=== PATIENT | male | born 1965 | race African-American/Black ===

== ENCOUNTER 2023-06-24 21:45 | Emergency (ER) | payer MEDICARE, MEDICAID, SELFPAY ==
[2023-06-24] VITALS (8 sets, daily range): BP systolic 154; BP diastolic 86; PULSE 77; RESP 18; TEMP 36.6; O2SAT 95–100
--- NOTE | ~2023-06-24 | XR_ITS ---
Portable chest x-ray Comparison: 10/03/2015 Clinical History: Upper respiratory infection Findings: There is haziness at the left lung base. Right lung clear. Cardiomediastinal silhouette i s stable. Bones and soft tissues are unremarkable. Impression: Left basilar airspace disease. Correlate for atelectasis/edema versus pneumonia. Reviewed, dictated and finalized at [facility]. [employer] Impression: Left basilar airspace disease. Correlate for atelectasis/edema versus pneumonia .
[2023-06-24 23:58] LABS: Influenza A QL RT-PCR Negative (Negative); Influenza B QL RT-PCR Negative (Negative); RSV RNA, RT-PCR Negative (Negative); SARS-CoV-2 RNA PCR Positive (Negative)
[2023-06-25] VITALS: O2SAT 97
[2023-06-25 00:06] VITALS: BP 120/80; O2SAT 97
[2023-06-25 00:15] VITALS: O2SAT 98
--- NOTE | 2023-06-25 00:25 | ED.GENADULT ---
HPI - General Adult General Chief complaint: Upper Respiratory Infection Stated complaint: covid + , coughing makes stomach hurt Time Seen by Provider: 06/24/23 22:22 History of Present Illness HPI narrative: this is a 4-year-old male presenting to the ED after a positive COVID test. Patient has had viral syndrome symptoms for the last week. He is improving. Yesterday took a COVID test which was positive. This made him very worried and came the emergency room to make sure that everything was all right. This time the patient's symptoms have all been improving while he still has some residual cough he is doing well overall. Related Data Home Medications Medication Instructions Recorded Confirmed amlodipine 10 mg tablet mg 06/24/23 atorvastatin 80 mg tablet mg 06/24/23 clopidogrel 75 mg tablet mg 06/24/23 empagliflozin 10 mg tablet mg 06/24/23 (Jardiance) ezetimibe 10 mg tablet mg 06/24/23 insulin glargine 100 unit/mL (3 unit subcut 06/24/23 mL) subcutaneous pen (Lantus Solostar U-100 Insulin) metoprolol succinate 100 mg mg PO 06/24/23 tablet,extended release 24 hr sitagliptin phosphate 100 mg mg 06/24/23 tablet (Januvia) sodium bicarbonate 650 mg tablet mg 06/24/23 spironolactone 25 mg tablet mg 06/24/23 torsemide 20 mg tablet mg 06/24/23 Allergies Allergy/AdvReac Type Severity Reaction Status Date / Time No Known Allergies Allergy Verified 06/24/23 21:53 Exam Narrative: APPEARANCE: No apparent distress, Well appearing Head: atraumatic. EYES: EOMI, NOSE: Atraumatic NECK: Trachea midline RESPIRATORY: No increased rate of breathing, CTAB CARDIOVASCULAR: RRR, ABDOMINAL: Non-distended MUSCULOSKELETAl: No obvious deformities NEURO: Alert. Moving 4/4 extremities SKIN:: Warm, dry. Normal color PSYCHIATRIC: Normal affect Course Vital Signs Vital signs: Vital Signs Temperature 97.8 F 06/24/23 21:49 Pulse Rate 77 06/24/23 21:49 Respiratory Rate 18 06/24/23 21:49 Blood Pressure 154/86 H 06/24/23 21:49 Pulse Oximetry 100 06/24/23 21:49 Temperature 97.8 F 06/24/23 21:49 Pulse Rate 77 06/24/23 21:49 Respiratory Rate 18 06/24/23 21:49 Blood Pressure 154/86 H 06/24/23 21:49 Pulse Oximetry 100 06/24/23 23:45 Oxygen Delivery Room Air 06/24/23 23:45 Medical Decision Making [facility] Narrative Medical decision making narrative: -Course:58-year-old male presenting with 1 week of viral syndrome. He became concerned after a positive COVID test at home. On exam here he is well appearing. Stable vital signs. Patient educated on expected course of COVID.Patient will be discharged with return precautions. -DDX includes but is not limited to: Viral syndrome, COVID, flu, pneumonia -Co-morbidities complicating care: hypertension, diabetes, heart disease -Social determinants of health: on disability for [place] -Independent interpretation of studies: COVID positive, chest x-ray and normal -Shared decision making / Disposition: discharged Vital Signs Vital Signs: Vital Signs Temperature 97.8 F 06/24/23 21:49 Pulse Rate 77 06/24/23 21:49 Respiratory Rate 18 06/24/23 21:49 Blood Pressure 154/86 H 06/24/23 21:49 Pulse Oximetry 100 06/24/23 21:49 Temperature 97.8 F 06/24/23 21:49 Pulse Rate 77 06/24/23 21:49 Respiratory Rate 18 06/24/23 21:49 Blood Pressure 154/86 H 06/24/23 21:49 Pulse Oximetry 100 06/24/23 23:45 Oxygen Delivery Room Air 06/24/23 23:45 Lab Data Labs: Lab Results 06/24/23 Range/Units 23:18 Influenza A (RT-PCR) Negative (Negative) Influenza B (RT-PCR) Negative (Negative) RSV (RT-PCR) Negative (Negative) SARS-CoV-2 RNA (RT-PCR) Positive A (Negative) Discharge Plan Discharge Clinical Impression: Upper respiratory infection, COVID Patient Disposition: Home, Self-Care Condition: Stable Instructions: Antibiotic Form, COVID-19 (Coronavirus Disease 201
[2023-06-25 00:30] VITALS: O2SAT 97
[2023-06-25 00:31] VITALS: BP 132/80; PULSE 66; RESP 17; O2SAT 99
== END 2023-06-25 00:50 | disposition home or self-care (01) ==
PROVIDERS: Emergency Provider Emergency Medicine
DX: U07.1 COVID-19 (principal); J06.9 Acute upper respiratory infection, unspecified; Z79.4 Long term (current) use of insulin; Z79.84 Long term (current) use of oral hypoglycemic drugs
CPT/HCPCS: 71045; 87637; 99283

== ENCOUNTER 2023-10-13 22:26 | Emergency (ER) | payer MEDICARE, MEDICAID, SELFPAY ==
--- NOTE | ~2023-10-13 | CT_ITS ---
EXAMINATION: CT facial & cervical spine wo DATE: 10/13/2023 23:59 INDICATION: Facial trauma. Neck pain. TECHNIQUE: Computed tomography (CT) of the maxillofacial region and cervical spine was performed with out intravenous contrast. The dose-length product was 582.88 mGy-cm. Automated exposure control and i terative reconstruction technique were employed. COMPARISON: None FINDINGS: MAXILLOFACIAL CT: No acute facial fracture. There is mucosal thickening of the paranasal sinuses. There are multiple de ntal caries. There is mild right facial soft tissue swelling. CERVICAL SPINE CT: No acute fracture or traumatic malalignment. There is mild cervical spondylosis. Craniovertebral junc tion is normal. Odontoid process is normal. Lateral masses normally aligned. Lung apices are normal. IMPRESSION: 1. No acute abnormality of the facial bones or cervical spine. 2: Moderate sinus disease. Reviewed, dictated and finalized at location [facility].
--- NOTE | ~2023-10-13 | CT_ITS ---
EXAMINATION: CT BRAIN W/O DATE: 10/13/2023 23:57 INDICATION: Head injury. EtOH. TECHNIQUE: Computed tomography (CT) of the head was performed without intravenous contrast. The dose- length product was 681.00 mGy-cm. Automated exposure control and iterative reconstruction technique w ere employed. COMPARISON: No prior studies for comparison. FINDINGS: Mild generalized atrophy. There are scattered mild periventricular and subcortical white ma tter changes, most likely related to small vessel ischemic disease (microangiopathy). There is intrac ranial atherosclerosis. There is a small chronic left thalamic infarction. No ventriculomegaly or midline shift. Midline sagittal images demonstrate a normal corpus callosum, c raniovertebral junction and sella turcica. Basilar cisterns are patent. Paranasal sinuses and mastoids are pneumatized. No depressed skull fractures. IMPRESSION: 1. No acute intracranial abnormality. Reviewed, dictated and finalized at location [facility].
[2023-10-13 22:27] VITALS: BP 144/77; PULSE 83; RESP 15; TEMP 36.8; O2SAT 97
[2023-10-13] MEDS: TETANUS,DIPHTHERIA,AC PERTUSSIS ADULT (0.5 ML) BOOSTRIX IM (23:09)
--- NOTE | 2023-10-14 00:02 | ED.GENADULT ---
HPI - General Adult General Chief complaint: Fall Stated complaint: GLF, Facial Injury, ETOH Time Seen by Provider: 10/13/23 22:35 History of Present Illness HPI narrative: patient is 58-year-old gentleman who presents emergency department with chief complaint of facial injury. The patient reports he drank a 5th of [employer] and was walking fell and hit his face against the ground the patient reports he has had several teeth that have been knocked out reports no chest pain denies pain in his extremities Related Data Home Medications Medication Instructions Recorded Confirmed amlodipine 10 mg tablet mg 06/24/23 atorvastatin 80 mg tablet mg 06/24/23 clopidogrel 75 mg tablet mg 06/24/23 empagliflozin 10 mg tablet mg 06/24/23 (Jardiance) ezetimibe 10 mg tablet mg 06/24/23 insulin glargine 100 unit/mL (3 unit subcut 06/24/23 mL) subcutaneous pen (Lantus Solostar U-100 Insulin) metoprolol succinate 100 mg mg PO 06/24/23 tablet,extended release 24 hr sitagliptin phosphate 100 mg mg 06/24/23 tablet (Januvia) sodium bicarbonate 650 mg tablet mg 06/24/23 spironolactone 25 mg tablet mg 06/24/23 torsemide 20 mg tablet mg 06/24/23 Allergies Allergy/AdvReac Type Severity Reaction Status Date / Time No Known Allergies Allergy Verified 06/24/23 21:53 Review of Systems Review of Systems: A 10 system review of systems was completed on the patient and is negative except for what is stated in the HPI. Nursing and ancillary documentation was reviewed. Exam Narrative: GENERAL: Well-appearing, well-nourished, and in no acute distress. HEAD: Normocephalic, atraumatic. EYES: PERRLA and EOMI. ENT: Nares clear, no rhinorrhea or epistaxis. Mucous membranes moist. multiple loose teeth and several teeth that appear to have been knocked out. The mandible appears to be stable NECK: Supple. CHEST: Clear to auscultation. No respiratory distress. HEART: Regular rate and rhythm. No murmur heard. Normal peripheral pulses. ABDOMEN: Soft, nontender, nondistended, normal active bowel sounds. EXTREMITIES: Normal range of motion. No edema. SKIN: Warm, dry, no rash. NEURO: No focal deficits. Alert and oriented x3. PSYCH: Normal mood and affect. Course Vital Signs Vital signs: Vital Signs Temperature 36.8 C 10/13/23 22:27 Pulse Rate 83 10/13/23 22:27 Respiratory Rate 15 10/13/23 22:27 Blood Pressure 144/77 H 10/13/23 22:27 Pulse Oximetry 97 10/13/23 22:27 Oxygen Delivery Room Air 10/13/23 22:27 Temperature 36.8 C 10/13/23 22:27 Pulse Rate 67 10/14/23 02:27 Respiratory Rate 15 10/14/23 02:27 Blood Pressure 131/76 10/14/23 00:34 Pulse Oximetry 98 10/14/23 02:27 Oxygen Delivery Room Air 10/13/23 22:27 Medical Decision Making MDM Narrative Medical decision making narrative: differential diagnosis includes intracranial hemorrhage, cervical spine fracture, facial fracture, dental trauma CT head CT C-spine CT facial bones were obtained showed no evidence of fracture. No evidence of acute intracranial pathology. Patient will be discharged home follow up with his primary care provider and also should follow up with a dentist Vital Signs Vital Signs: Vital Signs Temperature 36.8 C 10/13/23 22:27 Pulse Rate 83 10/13/23 22:27 Respiratory Rate 15 10/13/23 22:27 Blood Pressure 144/77 H 10/13/23 22:27 Pulse Oximetry 97 10/13/23 22:27 Oxygen Delivery Room Air 10/13/23 22:27 Temperature 36.8 C 10/13/23 22:27 Pulse Rate 67 10/14/23 02:27 Respiratory Rate 15 10/14/23 02:27 Blood Pressure 131/76 10/14/23 00:34 Pulse Oximetry 98 10/14/23 02:27 Oxygen Delivery Room Air 10/13/23 22:27 Discharge Plan Discharge Clinical Impression: Head injury, Dental trauma, Alcohol intoxication Patient Disposition: Home, Self-Care Condition: Stable Instructions: Antibiotic Form, Head Injury (ED), Alcohol Intoxicati
[2023-10-14 00:34] VITALS: BP 131/76; PULSE 95; RESP 16; O2SAT 97
[2023-10-14 02:27] VITALS: PULSE 67; RESP 15; O2SAT 98
== END 2023-10-14 02:57 | disposition home or self-care (01) ==
PROVIDERS: Emergency Provider Emergency Medicine
DX: S09.90XA Unspecified injury of head, initial encounter (principal); S02.5XXA Fracture of tooth (traumatic), initial encounter for closed fracture; F10.129 Alcohol abuse with intoxication, unspecified; Z23 Encounter for immunization; W01.0XXA Fall on same level from slipping, tripping and stumbling without subsequent striking against object, initial encounter
CPT/HCPCS: 70450; 70486; 72125; 90471; 90715; 99284

== ENCOUNTER 2025-02-04 16:05 | Emergency (ER) | payer MEDICARE, MEDICAID, SELFPAY ==
[2025-02-04] VITALS (7 sets, daily range): BP systolic 146–157; BP diastolic 72–108; PULSE 70–87; RESP 13–23; TEMP 36.3–36.6; O2SAT 96–100
--- NOTE | ~2025-02-04 | XR_ITS ---
EXAMINATION: XR chest 1V portable COMPARISON: No comparisons available. HISTORY: Cough x7 days FINDINGS: Scattered basilar small airspace opacities No pneumothorax. Heart is normal size. Mediastinal and hilar contours are within normal limits. Bony thorax no acute abnormality. Miscellaneous: None Impression: Bilateral pneumonia Reviewed, dictated and finalized at location A. Impression: Bilateral pneumonia
--- OUTSIDE RECORDS SUMMARY | 2025-02-04 16:06 | XMS_ITS | Encounter Summary ---
Author Organization [facility] , [facility] Address [address] [place] [phone] Phone Care Team Providers Care Photogrammetrist Name Role Phone Jr Schmidt MD Primary Care Provider [phone] Reason for Visit * Reason Comments Med Refill Encounter Details Date Type Department Care Team (Late st Contact Info) Description 04/26/2022 Refill [facility], [facility] [address] [facility] [address] [place] [phone] Feng Arevalo DO [address] [facility] [address] [place] [address] Social History Tobacco Use Types Packs/Day Years Used Date Smoking Tobacco: Never Alcohol Use Standard Drinks/Week Comments Yes 0 (1 standard drink = 0.6 oz pure alcohol) Alcoholic Drinks/day: Occasional social drink Sex and Gender Information Value Date Recorded Sex Assigned at Not on file Legal Sex Male 2:52 PM EDT Gender Identity Not on file Sexual Orientation Not on file documented as of this encounter Plan of Treatment Not on file documented as of this encounter Visit Diagnoses Not on filedocumented in this encounter Care Teams Photogrammetrist Relationship Specialty Start Date End Date Jr Schmidt MD [address] [place] [address] PCP - General Family Medicine 04/15/24 documented as of this encounter
--- OUTSIDE RECORDS SUMMARY | 2025-02-04 16:06 | XMS_ITS | Clinical Summary ---
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 300 each 4 01/08/20 24 Active albuterol HFA (PROVENTIL HFA,VENTOLIN HFA,PROAIR HFA) 90 mcg/actuation inhalerIndicati ons:Simple chronic bronchitis (HCC) Inhale 2 puffs every 6 (six) hours as needed for wheezing 3 each 4 01/08/20 24 Active sodium bicarbonate 650 mg tablet Take 1 tablet by mouth twice daily 200 tablet 1 07/23/19 25 Active LANTUS 100 unit/mL (3 mL) pen for injectionIndica tions:Hyperlipi demia associated with type 2 diabetes mellitus (HCC) INJECT 10 UNITS SUBCUTANEOUSLY NIGHTLY 15 mL 08/19/19 25 Active amLODIPine (NORVASC) 10 mg tabletIndicatio ns:Hypertensive kidney disease, stage III (HCC) Take 1 tablet (10 mg total) by mouth daily 90 tablet 3 11/11/19 25 026 Active atorvastatin (LIPITOR) 80 mg tabletIndicatio ns:Hyperlipidem ia associated with type 2 diabetes mellitus (HCC) Take 1 tablet (80 mg total) by mouth nightly 90 tablet 11/11/19 25 Active budesonide-glyc opyr-formoterol (BREZTRI) 160-9-4.8 mcg/actuation inhalerIndicati ons:Bronchospas m Prevention with COPD Inhale 2 puffs 2 (two) times a day 10.7 g 11/11/19 25 Active clopidogreL (PLAVIX) 75 mg tabletIndicatio ns:Atherosclero sis of [place] coronary artery of [place] heart without angina pectoris Take 1 tablet (75 mg total) by mouth daily 90 tablet 3 11/11/19 25 Active evolocumab (Repatha SureClick) 140 mg/mL pen injectorIndicat ions:Hyperlipid emia associated with type 2 diabetes mellitus (HCC) Inject 1 mL (140 mg total) under the skin every 14 (fourteen) days 2 mL 11/11/19 25 Active ezetimibe (ZETIA) 10 mg tabletIndicatio ns:Hyperlipidem ia associated with type 2 diabetes mellitus (HCC) Take 1 tablet (10 mg total) by mouth daily 90 tablet 3 11/11/19 25 Active Januvia 100 mg tabletIndicatio ns:Hyperlipidem ia associated with type 2 diabetes mellitus (HCC) Take 1 tablet (100 mg total) by mouth daily 90 tablet 11/11/19 25 Active empagliflozin (Jardiance) 10 mg tabletIndicatio ns:Hyperlipidem ia associated with type 2 diabetes mellitus (HCC) Take 1 tablet (10 mg total) by mouth daily 90 tablet 11/11/19 25 026 Active lisinopriL (PRINIVIL,ZESTR IL) 40 mg tabletIndicatio ns:Hypertensive kidney disease, stage III (HCC) Take 1 tablet (40 mg total) by mouth nightly 90 tablet 3 11/11/19 25 026 Active metoprolol XL (TOPROL-XL) 100 mg 24 hr tabletIndicatio ns:Hypertensive kidney disease, stage III (HCC) Take 1 tablet (100 mg total) by mouth nightly 90 tablet 11/11/19 25 Active pregabalin (LYRICA) 75 mg capsule Take 1 capsule (75 mg total) by mouth 2 (two) times a day 60 capsule 2 11/11/19 25 Active spironolactone (ALDACTONE) 25 mg tabletIndicatio ns:Hypertension associated with diabetes (HCC) Take 1 tablet (25 mg total) by mouth daily 90 tablet 3 11/11/19 25 026 Active Active Problems Problem Noted Date Diagnosed Date Stage 3b chronic kidney disease 10/01/2023 Encounter for Medicare annual wellness exam 09/12 Assessment & Plan (10/01/2023 3:48 PM CDT): A(n) yearly Medicare Annual Wellness Visit has been performed today. Renard Rivera is not up to date on screening tests. He is in need of Diabetic eye exam, Diabetic foot exam, hepatitis B, and Cholesterol screening. He is not up to date on needed preventative vaccinations; He is in need of Pneumonia (Prevnar-13 or Pneumovax- 23). We discussed healthy lifestyle habits, educational material has been given. Medications reviewed, changes documented as per the medical record and discussed with patient along with risks vs benefits. Return in 3 months Other thrombophilia 10/01/2023 Swelling of lower extremity 09/14/2023 Abnormal cardiovascular stress test 01/12/2023 Ventricular premature depolarization 11/10/2022 Patient noncompliant with statin medication 09/12 PAD (peripheral artery disease) 10/07/2022 Assessment & Plan (10/07/2022 12:45 PM CDT): Advised to resume aspirin Refilled Plavix At risk for diabetic foot ulcer 10/07/2022 Noncompliance with diabetes treatment 10/03/2022 Assessment & Plan (10/07/2022 12:58 PM CDT): As he has been off of his medications for around a month (he didn't call for refills of anything), I am concerned about his risk, and I expressed that to him bluntly in visit. Family history of other specified conditions 02/ Family history of stroke 06/29/2022 Shortness of breath 06/29/2022 Alcohol abuse 04/01/2022 Hypertension associated with diabetes 04/01/2022 Assessment & Plan (11/20/2022 4:27 PM CDT): Adding spironolactone Continuing current regimen otherwise, except discontinuing torsemide BMP ordered for 1-2 weeks to check potassium and renal function after starting spironolactone Assessment & Plan (07/08/2022 12:16 PM PORCELAIN ENAMEL REPAIRER): Awaiting labs EKG today shows old heart attack changes; possible new signs of ischemia. I will want to get a stress test regardless BP is controlled Continuing current regimen (will double check on the atorvastatin) Hyperlipidemia associated with type 2 diabetes richard bazan 02/03/2021 Assessment & Plan (10/07/2022 12:48 PM CDT): Resuming Jardiance, Adry Will try to resume Repatha, advised him to check with website to get information on savings, and let us know Refilled atorvastatin, Zetia Awaiting a1c, microalbumin, lipid panel Assessment & Plan (04/01/2022 2:18 PM PORCELAIN ENAMEL REPAIRER): A1c is still well below 7%, but increased a bit Will continue current regimen for now, recheck at follow up Calcium is elevated, checking in 2 weeks if parathyroid dysfunction present. Labs are ordered for Sunday, 04/10 here Cholesterol is improved Kidney function is mildly decreased, need more hydration with water (6-8 8-oz glasses a day), cut back on salt intake BP is improved nicely Wound is healed Assessment & Plan (02/03/2021 1:17 PM CDT): Pt on max dose of Atorvastatin and Zetia Has indication for PCSK9 inhibitor Will check fasting lipid profile Will request rx for Repatha. 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 Blood glucose monitoring : 1-2 x week Adjustment to oral medications: Continue with Jarkatianawolfgang and Wolfrubenvianey Carotid bruit 12/08/2016 Stenosis of carotid artery 06/09/2016 Obesity 06/09/2016 Obstructive sleep apnea syndrome 06/09/2016 Leg pain, bilateral 02/09/2016 Angina pectoris 01/07/2016 Chronic kidney disease, unspecified 12/03/2015 Chronic obstructive pulmonary disease 10/31/2015 Ischemic cardiomyopathy 10/31/2015 Diabetic nephropathy associa mandy with type 1 diabetes mellitus 10/20/2015 Hypertensive kidney disease, stage III 6 Assessment & Plan (10/07/2022 12:45 PM CDT): Start amlodipine 1/2 tab for 5 days, then to full tablet Advised to watch BP, then if not below 110/70, start metoprolol after 1 week on amlodipine; if BP is not improving with amlodipine, start metoprolol sooner Awaiting labs We will check on him early next week Atherosclerotic heart diseas e of [place] coronary artery without angina pectoris 10/04/2015 Assessment & Plan (10/07/2022 12:49 PM CDT): Unclear if he is still seeing a program management manager Working on resuming his medications, then we will get him back to specialist Resolved Problems Problem Noted Date Diagnosed Date Resolved Date Skin ulcer of right lower le g, limited to breakdown of skin 10/01/2023 01/08/2024 Encounters Date Type Department Care Team Description 11/11/2024 Results Follow-Up [facility] Primary Care at [address] [address] Jr Schmidt MD Hemoglobin A1c, Thyroid Function [place], T4, free 11/10/2024 4:02 PM CDT - 11/10/2024 11:59 PM CDT Hospital Encounter [address] [address] Hyperlipidemia associated with type 2 diabetes mellitus (HCC); Hypertensive kidney disease, stage III (HCC) Discharge Disposition: Discharge to home or self care 11/10/2024 4:00 PM CDT Lab [facility] Medical [facility] Outpatient Lab at [address] [address] 11/10/2024 3:15 PM CDT Office Visit [facility] Primary Care at [address] [address] Jr Schmidt MD 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 (HCC) (Primary Dx); Hypertensive kidney disease, stage III (HCC); Persistent atrial fibrillation (HCC); Hyperlipidemia associated with type 2 diabetes mellitus (HCC); Simple chronic bronchitis (HCC); Atherosclerosis of [place] coronary artery of [place] heart without angina pectoris; Hypertension associated with diabetes (HCC); At risk for diabetic foot ulcer; Screening for diabetic retinopathy from Last 3 Months Immunizations Immunization Administration Dates Next Due Influenza, Quadrivalent, Spl it, Preservative Free, Intramuscular 03/30/2022 Influenza, Trivalent, Preser vative Free, Intramuscular 04/07/2024 Influenza, Unspecified 05/14/2023(Deferr ed: Patient Refused),05/14/2023(Deferred: Patient Refused),05/14/2022(Deferred: Patient Refused) Pneumococcal Conjugate Pcv20 10/01/2023 Tdap 10/13/2023 Surgical History Surgery Date Site/Laterality Comments CARDIAC STENT PLACEMENT September 2014, presented with ID CORONARY ANGIOPLASTY WITH STENT PLACEMENT 05/14/2023 - 05/13/2024 Medical History Medical History Date Comments Type 2 diabetes mellitus Hyperlipidemia Hypertension Kidney disease CAD (coronary artery disease) Patient noncompliant with statin medication 10/07 Family History Medical History Relation Name Comments Hypertension Father Hypertension Mother Stroke Mother Stroke; Diabetes Sister Relation Name Status Comments Father Mother (Age 74) Sister Social History Tobacco Use Types Packs/Day Years Used Date Smoking Tobacco: Never Smokeless Tobacco: Never Tobacco Cessation:Counseling Given: Not Answered Alcohol Use Standard Drinks/Week Comments Yes 0 (1 standard drink = 0.6 oz pur e alcohol) AUDIT-C Answer Date Recorded Q1: How often do you have a drink containing alcohol? 4 or more times a week 03/30/2022 Q2: How many drinks containi ng alcohol do you have on a typical day when you are drinking? 3 or 4 Q3: How often do you have si x or more drinks on one occasion? Daily or almost daily 03/30/2022 PHQ-2 Answer Date Recorded PHQ-2 Total Score (If total score is 3 or more points, staff should administer the PHQ-9) 0 11/10/2024 Sex and Gender Information Value Date Recorded Sex Assigned at Not on file Legal Sex Male 3:51 AM PORCELAIN ENAMEL REPAIRER Gender Identity Not on file Sexual Orientation Not on file Obstetrics History Last Filed Vital Signs Vital Sign Reading Time Taken Comments Blood Pressure 146/80 11/10/2024 3:14 PM CDT Pulse 74 11/10/2024 3:14 PM CDT Temperature 36 C (96.8 F) 11/10/2024 3:14 PM CDT Respiratory Rate 18 11/10/2024 3:14 PM CDT Oxygen Saturation 96% 11/10/2024 3:14 PM CDT Inhaled Oxygen Concentration - - Weight 103.9 kg (229 lb) 11/10/2024 3:14 PM CDT Height 185.4 cm (6' 1) 11/10/2024 3:14 PM CDT Body Mass Index 30.21 11/10/2024 3:14 PM CDT Plan of Treatment Health Maintenance Due Date Last Done Comments Colon Cancer Screening-Colonoscopy 1965 Dilated Eye Exam 1973 Covid-19 Vaccine ( season) 2025 08/29/2020, 08/08/2020 Influenza Vaccine (#1) 2025 04/07/2024, 2021 Hemoglobin A1C 05/12/2025 11/10/2024, 03/0 08/2024, 04/07/2024, Additional history exists Albumin Creatinine Ratio, Urine 07/15/2025 07/15/2024, 10/01/2023, 10/06/2022, Additional history exists Foot Exam 07/15/2025 07/15/2024, 06/14, 02/03/2021 Lipid Panel 07/15/2025 07/15/2024, 03/15, 10/01/2023, Additional history exists eGFR 07/15/2025 07/15/2024, 03/15, 10/01/2023, Additional history exists Depression Screening 11/10/2025 11/10/2024, 07/15/2024, 04/07/2024, Additional history exists Regular Well Visit/Exam 18-64 11/10/2025 11/10/2024, 10/01/2023 TSH Level 11/10/2025 11/10/2024, 09/12, 10/06/2022, Additional history exists Zoster Vaccine (1 of 2) 11/10/2025 Post poned from 2013 (Insurance / Financial) Prostate Cancer Screening-PSA 07/15/2026 07/15/2024, 09/05/2022 DTaP/Tdap/Td Vaccine (2 - Td or Tdap) 10/12/2033 10/13/2023 Hepatitis C Screening Completed 09/05/2022 Hepatitis B Screening Completed 10/01/2023 Pneumococcal vaccine <65 Completed 10/01/2023 Procedures Procedure Name Priority Date/Time Associated Diagnosis Comments T4, FREE Routine 11/10/2024 4:02 PM CDT Hypertensive kidney disease, stage III (HCC) THYROID FUNCTION CASCADE Routine 11/10/2024 4:02 PM CDT Hypertensive kidney disease, stage III (HCC) HEMOGLOBIN A1C Routine 11/10/2024 4:02 PM CDT Hyperlipidemia associated with type 2 diabetes mellitus (HCC) EGFR Routine 07/15/2024 11:17 AM PORCELAIN ENAMEL REPAIRER Hypertensive kidney disease, stage III (HCC) Stage 3b chronic kidney disease (HCC) LIPID PANEL Routine 07/15/2024 11:17 AM PORCELAIN ENAMEL REPAIRER Hyperlipidemia associated with type 2 diabetes mellitus (HCC) ALBUMIN CREATININE RATIO, URINE Routine 07/15/2024 11:17 AM PORCELAIN ENAMEL REPAIRER Hypertensive kidney disease, stage III (HCC) 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 (HCC) PSA SCREEN Routine 07/15/2024 11:17 AM PORCELAIN ENAMEL REPAIRER Screening PSA (prostate specific antigen) HEPATITIS C ANTIBODY Routine 09/05/2022 9:25 AM CDT Encounter for hepatitis C screening test for low risk patient from Last 3 Months or Most Recently Relevant to Health Maintenance Results * (ABNORMAL) Thyroid Function [place] (11/10/2024 4:02 PM CDT) TSH 5.84(H) 0.30 - 4.20 mcIUnit/mL Blood 11/10/2024 4:02 PM CDT 11/10/2024 9:31 PM CDT Jr Schmidt MD LAB BLOOD ORDERABLES Final Result Performing Organization Address City/[facility] Co de Phone Number KENNETH LARKIN [address] [email or web address] [place], [place] [id number] * T4, free (11/10/2024 4:02 PM CDT) Free T4 1.06 0.90 - 1.70 ng/dL Blood 11/10/2024 4:02 PM CDT 11/10/2024 9:54 PM CDT Jr Schmidt MD LAB BLOOD ORDERABLES Final Result Performing Organization Address City/[facility] Co de Phone Number KENNETH LARKIN [address] [address] [email or web address] [place] [address] * (ABNORMAL) Hemoglobin A1c (11/10/2024 4:02 PM CDT) Hgb A1C 6.9(H) 4.0 - 5.6 % Estimated Average Glucose 151 mg/dL KENNETH LARKIN Comment: The ADA recommends reporting an estimated Average Glucose (eAG) with all Hemoglobin A1c results using the equation derived from a study of 507 normal and diabetic adults. Minority populations were underrepresented and children were not included. (Diabetes Care 31:6211-9791, 2008). The eAG is not equivalent to a fasting glucose. Blood 11/10/2024 4:0 2 PM CDT 11/10/2024 9:31 PM CDT Jr Schmidt MD LAB BLOOD ORDERABLES Final Result Performing Organization Address [facility] Co de Phone Number KENNETH LARKIN [address] Department [email or web address] [place] [address] * (ABNORMAL) eGFR (07/15/2024 11:17 AM PORCELAIN ENAMEL REPAIRER) eGFR 52(L) >=60 mL/min/1. 73 m2 Comment: Interpretive Data Reference Interval Normal >/= 90 mL/min/1.73m2 Mildly decreased* 60 - 89 mL/min/1.73m2 Mildly to moderately decreased 45 - 59 mL/min/1.73m2 Moderately to severely decreased 30 - 44 mL/min/1.73m2 Severely decreased 15 - 29 mL/min/1.73m2 Kidney Failure < 15 mL/min/1.73m2 *Relative to young adult level Estimated glomerular filtration rate is determined by the 2020 CKD-EPI equation recommended by the National Kidney Foundation (A Unifying Approach to GFR Estimation: Recommendations of the NKF-ASK Task Force on Reassessing the Inclusion of Race in Diagnosing Kidney Disease, JASN 2020). The CKD-EPI equation should not be used for patients with unstable renal function and has not been validated in children and those over 70. Current interpretive data was last reviewed 2021. Blood 07/15/2024 11:1 7 AM PORCELAIN ENAMEL REPAIRER 07/15/2024 10:11 PM PORCELAIN ENAMEL REPAIRER Jr Schmidt MD LAB BLOOD ORDERABLES Final Result Performing Organization Address City/[facility]/ZIP Co de Phone Number KENNETH LARKIN [phone] [address] [email or web address] [place] [address] * PSA screen (07/15/2024 11:17 AM PORCELAIN ENAMEL REPAIRER) PSA-Total 1.49 <=5.40 ng/mL Comment: Interpretive Data AGE SEX REFERENCE INTERVAL 0 minutes-150 years Female None 0 minutes-49 years Male None 50-59 years Male 0-3.90 60-69 years Male 0-5.40 70-79 years Male 0-6.20 80-150 years Male 0-6.20 The Nestor PSA Total assay procedure was used. Results from different manufacturers or methods may not be comparable. Serial testing should be performed using the same method. Current interpretive data last revised 21. Blood 07/15/2024 11:1 7 AM PORCELAIN ENAMEL REPAIRER 07/15/2024 10:07 PM PORCELAIN ENAMEL REPAIRER Jr Schmidt MD LAB BLOOD ORDERABLES Final Result Performing Organization Address [facility] de Phone Number [facility] [address] [address] [email or web address] [place] [address] * (ABNORMAL) Albumin Creatinine Ratio, Urine (07/15/2024 11:17 AM PORCELAIN ENAMEL REPAIRER) Albumin Ur 118.3 mg/L Comment: Interpretive Data No reference range established. Current interpretive data was last revised 2018. Creatinine Ur 92.0 mg/dL [facility] Comment: Interpretive Data No reference range established. Current interpretive data was last revised 2018. Albumin Creatinine Ratio, Ur 129(H) 1 - 29 mg/g [facility] Urine 07/15/2024 11:1 7 AM PORCELAIN ENAMEL REPAIRER 07/15/2024 10:07 PM PORCELAIN ENAMEL REPAIRER Jr Schmidt MD LAB URINE ORDERABLES Final Result Performing Organization Address [facility] Phone Number [facility] [address] [address] [facility] [place] [address] * Lipid panel (07/15/2024 11:17 AM PORCELAIN ENAMEL REPAIRER) Cholesterol 185 30 - 199 mg/dL Comment: Interpretive Data Ages < or = 19 years Acceptable: <170 mg/dL Borderline high: 170-199 mg/dL High: >or= 200 mg/dL Ages > or = 20 years Desirable: <200 mg/dL Borderline high: 200-239 mg/dL High: >or= 240 mg/dL Literature References: 1. Expert Panel on Integrated Guidelines for Cardiovascular Health and Risk Reduction in Children and Adolescents. Pediatrics 2011;128:S213 2. NCEP Expert Panel. Circulation 2004;110:227 Current Interpretive Data was last revised on 2018. Triglycerides 112 <=149 mg/dL KENNETH Comment: Interpretive Data Ages < or = 9 years Acceptable: <75 mg/dL Borderline high: 75-99 mg/dL High: >or= 100 mg/dL Ages 10 to 20 years Acceptable: <90 mg/dL Borderline high: 90-129 mg/dL High: >or= 130 mg/dL Ages > or = 20 years Desirable: <150 mg/dL Borderline high: 150-199 mg/dL High: 200-499 mg/dL Very high: >or= 499 mg/dL Literature References: 1. Expert Panel on Integrated Guidelines for Cardiovascular Health and Risk Reduction in Children and Adolescents. Pediatrics 2011;128:S213 2. NCEP Expert Panel. Circulation 2004;110:227 Current Interpretive Data was last revised on 2018. HDL 61 >=40 mg/dL KNENETH Comment: Interpretive Data Ages < or = 19 years Acceptable: >45 mg/dL Borderline low: 40-45 mg/dL Low: <40 mg/dL Ages > or = 20 years Desirable: >or= 60 mg/dL Low: <40 mg/dL Literature References: 1. Expert Panel on Integrated Guidelines for Cardiovascular Health and Risk Reduction in Children and Adolescents. Pediatrics 2011;128:S213 2. NCEP Expert Panel. Circulation 2004;110:227 Current Interpretive Data was last revised on 2018. LDL, calculated 104 <=129 mg/dL KENNETH Comment: Interpretive Data Ages < or = 19 years Acceptable: <110 mg/dL Borderline high: 110-129 mg/dL High: >or= 130 mg/dL Ages > or = 20 years Optimal: <100 mg/dL Near optimal: 100-129 mg/dL Borderline high: 130-159 mg/dL High: >160 mg/dL Calculated using the Wu LDL-C estimating equation. This equation was implemented on 2024. Prior to this date LDL-C was estimated using the Friedewald equation. Literature References: 1. Expert Panel on Integrated Guidelines for Cardiovascular Health and Risk Reduction in Children and Adolescents. Pediatrics 2011;128:S213 2. NCEP Expert Panel. Circulation 2004;110:227 3. Bryce M et al. GONZALEZ Cardiol. 2019September 11;5(5):540-548. doi: 10.1001/[email or web address] Current Interpretive Data was last revised on 2024. Non-HDL Cholesterol 124 mg/dL KENNETH LARKIN Comment: Interpretive Data Ages < or = 19 years Acceptable: <120 mg/dL Borderline high: 120-144 mg/dL High: >145 mg/dL Ages > or = 20 years When triglycerides are >200 mg/dL, Non-HDL cholesterol is a secondary target of therapy with treatment goals that are 30 mg/dL greater than the LDL cholesterol target. Literature References: 1. Expert Panel on Integrated Guidelines for Cardiovascular Health and Risk Reduction in Children and Adolescents. Pediatrics 2011;128:S213 2. NCEP Expert Panel. Circulation 2004;110:227 Current Interpretive Data was last revised on 2018. Chol/HDL ratio 3 KENNETH Blood 07/15/2024 11:1 7 AM PORCELAIN ENAMEL REPAIRER 07/15/2024 10:07 PM PORCELAIN ENAMEL REPAIRER Jr Schmidt MD LAB BLOOD ORDERABLES Final Result KENNETH [address] [place] [address] * Hepatitis C antibody (09/05/2022 9:25 AM CDT) Pathologist [facility] Hep C Ab Nonreactive Nonreactive KENNETH LARKIN Comment: Interpretive Data Nonreactive: Antibodies to HCV not detected. Does NOT exclude the possibility of recent exposure to HCV. Equivocal: Equivocal for HCV antibodies. Supplemental molecular testing will be automatically performed to determine infection status in accordance with current CDC screening recommendations. Reactive: Positive for HCV antibodies. This may represent current or past HCV infection. Supplemental molecular testing will be automatically performed to determine current infection status in accordance with current CDC screening recommendations. Interpretive data was last revised on 2019. Blood 09/05/2022 9:25 AM CDT 09/05/2022 3:25 PM CDT Jr Schmidt MD LAB MICROBIOLOGY - GENERAL ORDERABLES Final Result Performing Organization Address City/State/ZIP [facility] Phone Number KENNETH [address] [facility] [place] [address] from Last 3 Months or Most Recently Relevant to Health Maintenance Insurance [facility] [employer] Care Teams Front Sight Attacher Relationship Specialty Start Date End Date Jr Schmidt MD [address] [facility] [address] [place] [address] PCP - General Family Medicine 03/02/22 Feng Arevalo DO [address] [facility] [address] [place] [address] Consulting Physician Nephrology 06/29/22 Werner Estevez MD [address] [place] [address] Consulting Physician Cardiology 10/01/23
--- OUTSIDE RECORDS SUMMARY | 2025-02-04 16:06 | XMS_ITS | Encounter Summary ---
Author Organization [facility] , [facility] Address [address] [place] [phone] Phone Care Team Providers Care Central Processing Tech Name Role Phone Jr Schmidt MD Primary Care Provider [phone] Reason for Visit * Reason Comments Med Refill Encounter Details Date Type Department Care Team (Late st Contact Info) Description 02/26/2022 Refill [place] [facility], [facility] 1265 [facility] 1 [place] [phone] Feng Arevalo DO 1265 [facility] 1 [place] [address] Social History Tobacco Use Types [...] on filedocumented in this encounter Care Teams Central Processing Tech Relationship Specialty Start Date End Date Jr Schmidt MD [address], [id number] [place] [address] PCP - General Family Medicine 04/15/24 documented as of this encounter
--- OUTSIDE RECORDS SUMMARY | 2025-02-04 16:06 | XMS_ITS | Encounter Summary ---
Author Organization [facility] , [facility] Address [address] [place] [phone] Phone Care Team Providers Care Merchant Mill Utility Worker Name Role Phone Jr Schmidt MD Primary Care Provider Reason for Visit * Reason Comments Med Refill Encounter Details Date Type Department Care Team (Late st Contact Info) Description 04/22/2022 Refill [place] [facility], [facility] 1265 [facility] 1 [place] [phone] Feng Arevalo DO 1265 [facility] 1 [place] [address] Social History Tobacco Use Types [...] on filedocumented in this encounter Care Teams Merchant Mill Utility Worker Relationship Specialty Start Date End Date Jr Schmidt MD [address], [id number] [place] [address] PCP - General Family Medicine 04/15/24 documented as of this encounter
--- OUTSIDE RECORDS SUMMARY | 2025-02-04 16:06 | XMS_ITS | Clinical Summary ---
Author Organization [facility] Address [address] [place] [address] Phone Care Team Providers Care Farm Adviser Name Role Phone Unavailable Primary Care Provider Unavailabl e Medications hydrALAZINE (APRESOLINE) 10 MG tablet 1 tab/cap tid 0 6 Active atorvastatin (LIPITOR) 40 MG tablet 1 tab/cap qday 0 6 Active nitroglycerin (NITROSTAT) 0.4 MG SL tablet as directed 0 6 Active isosorbide dinitrate (ISORDIL) 5 MG tablet 1 tab/cap tid 0 6 Active clopidogrel (PLAVIX) 75 MG tablet 1 tab/cap qday 0 6 Active insulin aspart (NOVOLOG) 100 UNIT/ML injection as directed 0 6 Active aspirin 325 MG EC tablet 1 tab/cap qday 0 6 Active insulin glargine (LANTUS) 100 UNIT/ML injection as directed 0 6 Active furosemide (LASIX) 40 MG tablet 1 tab twice daily 0 8 Active hydrALAZINE (APRESOLINE) 50 MG tablet 1 tab 4 times daily 0 8 Active amLODIPine (NORVASC) 5 MG tablet 1 tab daily 0 8 Active atorvastatin (LIPITOR) 40 MG tablet 1 tab daily 0 8 Active metoprolol tartrate (LOPRESSOR) 50 MG tablet 1 tab twice daily 0 8 Active isosorbide mononitrate (IMDUR) 60 MG 24 hr tablet 1 tab daily 0 8 Active aspirin EC 325 MG EC tablet 1 tab daily 0 8 Active lisinopril (PRINIVIL,ZESTRI L) 10 MG tablet 1 tab daily 0 8 Active clopidogrel (PLAVIX) 75 MG tablet 1 tab daily 0 8 Active insulin glargine (LANTUS) 100 UNIT/ML injection use as directed 0 8 Active insulin aspart (NovoLOG FLEXPEN) 100 UNIT/ML injection use as directed 0 8 Active escitalopram (LEXAPRO) 5 MG tablet 1 tab daily 0 8 Active Active Problems Problem Noted Date Diagnosed Date Hyperlipidemia 05/22/2017 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 Type 2 diabetes mellitus with diabetic nephropat hy 10/31/2015 Ischemic cardiomyopathy 10/31/2015 Atherosclerotic heart diseas e of [place] coronary artery without angina pectoris 10/31/2015 Obstructive sleep apnea 10/31/2015 Other specified peripheral vascular disease 10/12 Chronic obstructive pulmonary disease 10/31/2015 Alcohol abuse, uncomplicated 10/31/2015 Family History Medical History Relation Comments Cerebrovascular accident Mother Diabetes mellitus Sibling Kidney disease Neg Hx Kidney stone Neg Hx Relation Status Comments Mother Sibling Social History Tobacco Use Types Packs/Day Years Used Date Smoking Tobacco: Never Assessed Alcohol Use Standard Drinks/Week Comments Yes 0 (1 standard drink = 0.6 oz pur e alcohol) Sex and Gender Information Value Date Recorded Sex Assigned at Not on file Legal Sex Male 8:18 AM MST Gender Identity Not on file Sexual Orientation Not on file Last Filed Vital Signs Vital Sign Reading Time Taken Comments Blood Pressure 142/69 05/22/2017 12:01 AM CALIBRATOR BAROMETERS Pulse 72 05/22/2017 12:01 AM CALIBRATOR BAROMETERS Temperature 37 C (98.6 F) 11/01/2015 12:01 AM CDT Respiratory Rate - - Oxygen Saturation - - Inhaled Oxygen Concentration - - Weight 120 kg (265 lb) 05/22/2017 12:01 AM CALIBRATOR BAROMETERS Height 185.4 cm (6' 1) 05/22/2017 12:01 AM CALIBRATOR BAROMETERS Body Mass Index 34.96 05/22/2017 12:01 AM CALIBRATOR BAROMETERS Plan of Treatment Not on file
--- OUTSIDE RECORDS SUMMARY | 2025-02-04 16:06 | XMS_ITS | Encounter Summary ---
Author Organization [facility] , [facility] Address [address] [place] [address] Phone Care Team Providers Care Stationary Engineer Apprentice Name Role Phone Jr Schmidt MD Primary Care Provider [phone] Reason for Visit * Reason Comments Med Refill Encounter Details Date Type Department Care Team (Late st Contact Info) Description 04/22/2023 Refill [place] [facility], [facility] 4 [facility] [address] [place] [phone] Feng Arevalo DO [address] [place] [address] Social History Tobacco Use Types [...] on filedocumented in this encounter Care Teams Stationary Engineer Apprentice Relationship Specialty Start Date End Date Jr Schmidt MD [id number] [place] [address] PCP - General Family Medicine 04/15/24 documented as of this encounter
--- OUTSIDE RECORDS SUMMARY | 2025-02-04 16:06 | XMS_ITS | Encounter Summary ---
Author Organization [email or web address] Address [address] [address] Phone Care Team Providers Care Tar Heater Operator Name Role Phone Jr Schmidt MD Primary Care Provider [phone] Encounter Details Date Type Department Care Team (Late st Contact Info) Description 12/02/2020 Orders Only [employer] [facility] 1265 [facility] 1 [place] [address] Feng Arevalo DO 1265 [facility] 1 [place] [address] Hypercalcemia (Primary Dx) Social History Tobacco Use Types Packs/Day Years [...] as of this encounter Plan of Treatment Scheduled Orders Name Type Priority Associated Diagnoses Orde r Schedule Renal function panel Lab Routine Hypercalcemia Expected: 12/02/2020, Expires: 01/02/2022 PTH, intact Lab Routine Hypercalcemia Expected: 12/02/2020, Expires: 01/02/2022 Vitamin D 25 hydroxy Lab Routine Hypercalcemia Expected: 12/02/2020, Expires: 01/02/2022 Magnesium Lab Routine Hypercalcemia Expected: 12/02/2020, Expires: 01/02/2022 Urine Protein / creatinine ratio Lab Routine Hypercalcemia Expected: 12/02/2020, Expires: 01/02/2022 Calcium, ionized Lab Routine Hypercalcemia Expected: 12/02/2020, Expires: 01/02/2022 Calcium, urine, random Lab Routine Hypercalcemia Expected: 12/02/2020, Expires: 01/02/2022 documented as of this encounter Visit Diagnoses Diagnosis Hypercalcemia- Primary documented in this encounter Care Teams Tar Heater Operator Relationship Specialty Start Date End Date Jr Schmidt MD [address], [address] [address] PCP - General Family Medicine 04/15/24 documented as of this encounter
--- OUTSIDE RECORDS SUMMARY | 2025-02-04 16:06 | XMS_ITS | Clinical Summary ---
Author Organization [facility] Address [facility] [place] [address] Care Team Providers Care Pantograph Operator Name Role Phone Unavailable Primary Care Provider Unavailabl e Social History Tobacco Use Types Packs/Day Years Used Date Smoking Tobacco: Never Assessed Sex and Gender Information Value Date Recorded Sex Assigned at Not on file Legal Sex Male 9:41 PM CDT Gender Identity Not on file Sexual Orientation Not on file Plan of Treatment Health Maintenance Due Date Last Done Comments Colorectal Cancer Screening Colonoscopy (10 Years) 1963 Annual Physical 1966 Hepatitis C 1981 DTaP, Tdap and Td Vaccines ( 1 - Tdap) 1982 Pneumococcal Vaccine: 50+ Ye ars (1 of 1 - PCV) 2013 Zoster Vaccines (1 of 2) 2013 COVID-19 Vaccine (1 - 2023-2 5 season) 2025 RSV Immunization or 60+ Years (1 - 1-dose 75+ series) 2038 Meningococcal B Vaccine Aged Out No l onger eligible based on patient's age to complete this topic Meningococcal Vaccine Aged Out No meghan chiqui eligible based on patient's age to complete this topic RSV Immunizations Under 20 Months Aged Out No longer eligible based on patient's age to complete this topic
--- OUTSIDE RECORDS SUMMARY | 2025-02-04 16:06 | XMS_ITS | Clinical Summary ---
Author Organization [facility] Address [address] [place] [address] Care Team Providers Care White Shoe Ragger Name Role Phone Jr Schmidt MD Primary Care Provider [phone] Medications hydrOXYzine (ATARAX) 50 MG tablet Take by mouth 0 Active insulin glargine (Lantus SoloStar) 100 UNIT/ML injection inject 10 units by subcutaneous route nightly 0 Active lisinopril 10 MG tablet Take by mouth 0 Active metoprolol succinate XL (TOPROL-XL) 100 MG 24 hr tablet TAKE 1 TABLET BY MOUTH AT BEDTIME 90 tablet 2 Active Empagliflozin 25 MG tablet Take 25 mg by mouth every morning 90 tablet 1 2 Active escitalopram (Lexapro) 10 MG tablet Take 1 tablet (10 mg total) by mouth every morning 90 tablet 1 2 Active torsemide (DEMADEX) 20 MG tablet Take 1 tablet (20 mg total) by mouth every morning 90 tablet 1 2 Active sodium bicarbonate 650 MG tablet Take 1 tablet (650 mg total) by mouth in the morning and 1 tablet (650 mg total) in the evening. 180 tablet 1 2 Active SITagliptin (Januvia) 100 MG tablet Take 1 tablet (100 mg total) by mouth every morning 90 tablet 1 2 Active aspirin (Michael Aspirin EC Low Dose) 81 MG EC tablet Take 1 tablet (81 mg total) by mouth 1 (one) time each day 90 tablet 1 2 Active Cholecalciferol 50 MCG (1999 UT) capsule Take 1 capsule by mouth 1 (one) time each day 90 capsule 1 2 Active clopidogrel (PLAVIX) 75 MG tablet Take 1 tablet (75 mg total) by mouth 1 (one) time each day 90 tablet 1 2 Active amLODIPine (NORVASC) 10 MG tablet Take 1 tablet (10 mg total) by mouth at bed time 90 tablet 1 2 Active atorvastatin (LIPITOR) 80 MG tablet TAKE 1 TABLET BY MOUTH ONCE DAILY AT BEDTIME 90 tablet 2 Active lisinopril 40 MG tablet TAKE 1 TABLET BY MOUTH ONCE DAILY AT BEDTIME 90 tablet 2 Active Social History Tobacco Use Types Packs/Day Years [...] Sign Reading Time Taken Comments Blood Pressure 136/72 11/08/2021 3:23 PM CDT Pulse 75 11/08/2021 3:23 PM CDT Temperature 36.6 C (97.9 F) 11/08/2021 3:23 PM CDT Respiratory Rate 18 11/08/2021 3:23 PM CDT Oxygen Saturation 96% 11/08/2021 3:23 PM CDT Inhaled Oxygen Concentration - - Weight 112 kg (248 lb) 11/08/2021 3:23 PM CDT Height 182.9 cm (6') 11/08/2021 3:23 PM CDT Body Mass Index 33.63 11/08/2021 3:23 PM CDT Plan of Treatment Health Maintenance Due Date Last Done Comments Pneumococcal Vaccine: 50+ Years (1 of 2 - PCV) 1982 Colorectal Cancer Screening: Annual FOBT 02/03/2012 Colorectal Cancer Screening: Colonoscopy 02/03/2012 Colorectal Cancer Screening: Sigmoidoscopy 02/03/2012 Diabetes: Ophthalmology Exam 10/07/2020 Diabetes: Pedal Pulse Checked 10/07/2020 Diabetes: Sensory Foot Exam 10/07/2020 Diabetes: Visual Foot Exam 10/07/2020 Diabetes: Hemoglobin A1C 07/08/202404/07/2 024, 10/27/2021, 05/02/2021, Additional history exists Influenza Vaccine (#1) 2025 04/07/2024, 2021 Hepatitis B Vaccine Aged Out No longe r eligible based on patient's age to complete this topic Procedures Procedure Name Priority Date/Time Associated Diagnosis Comments HEMOGLOBIN A1C Routine 10/27/2021 10:41 AM CDT from Last 3 Months or Most Recently Relevant to Health Maintenance Results * (ABNORMAL) Hemoglobin A1c (10/27/2021 10:41 AM CDT) Hemoglobin A1C 6.6(H) <5.7 % of total Hgb [facility] Comment: For someone without known diabetes, a hemoglobin A1c value of 6.5% or greater indicates that they may have diabetes and this should be confirmed with a follow-up test. For someone with known diabetes, a value <7% indicates that their diabetes is well controlled and a value greater than or equal to 7% indicates suboptimal control. A1c targets should be individualized based on duration of diabetes, age, comorbid conditions, and other considerations. Currently, no consensus exists regarding use of hemoglobin A1c for diagnosis of diabetes for children. 10/27/2021 10:4 1 AM CDT 10/27/2021 10:46 AM CDT Narrative [facility] - 10/28/2021 10:58 AM CDT FASTING:YES FASTING: YES Resulting Agency Comment Performing Organization Information: Site ID: [id number] Name: [facility] Address: [address] [address] [address] Director: Ray Hall us Feng Arevalo DO LAB BLOOD ORDERABLES Final R esult [facility] from Last 3 Months or Most Recently Relevant to Health Maintenance Insurance Medicaid [place] [address] Care Teams White Shoe Ragger Relationship Specialty Start Date End Date Jr Schmidt MD [facility] [address], [address] [address] PCP - General Family Medicine 04/15/24
[2025-02-04 16:54] LABS: Influenza A QL RT-PCR Negative (Negative); Influenza B QL RT-PCR Negative (Negative); RSV RNA, RT-PCR Negative (Negative); SARS-CoV-2 RNA PCR Negative (Negative)
--- NOTE | 2025-02-04 17:07 | ECG_ITS ---
Test Date: 2025-02-04 17:55:40 Measurements Intervals [place] Rate: 72 P: 26 NE: 184 QRS: -48 QRSD: 89 T: -32 QT: 364 QTc: 399 Interpretive Statements SINUS RHYTHM WITH OCCASIONAL SUPRAVENTRICULAR PREMATURE COMPLEXES VOLTAGE CRITERIA FOR LVH [MEETS CRITERIA IN ONE OF: R(aVL), S(V1), R(V5), R(V5/V6)+S(V1)] ANTERIOR MYOCARDIAL INFARCTION , OF INDETERMINATE AGE [40+ ms Q WAVE AND/OR ST/T ABNORMALITY IN V3/V4] INFERIOR MYOCARDIAL INFARCTION , OF INDETERMINATE AGE [40+ ms Q WAVE AND/OR ST/T ABNORMALITY IN II/aVF] No previous ECG available for comparison Electronically Signed On 02-05-2025 06:39:38 CDT by Margarita Wilcox M.D.
--- OUTSIDE RECORDS SUMMARY | 2025-02-04 17:16 | XMS_ITS | Encounter Summary ---
Author Organization [facility] , [facility] Address [address] [place] [phone] Phone Care Team Providers Care Soil Sort Worker Name Role Phone Jr Schmidt MD Primary Care Provider [phone] Reason for Visit * Reason Comments Med Refill Encounter Details Date Type Department Care Team (Late st Contact Info) Description 04/26/2022 Refill [place] [facility], [facility] 1265 [facility] 1 [place] [phone] Feng Arevalo DO 1265 [facility] 1 [place] [address] Social History Tobacco Use Types [...] on filedocumented in this encounter Care Teams Soil Sort Worker Relationship Specialty Start Date End Date Jr Schmidt MD [address], [id number] [place] [address] PCP - General Family Medicine 04/15/24 documented as of this encounter
--- OUTSIDE RECORDS SUMMARY | 2025-02-04 17:16 | XMS_ITS | Encounter Summary ---
Author Organization [facility] Address [address] [address] Phone Care Team Providers Care Psychiatric Clinician Name Role Phone Jr Schmidt MD Primary Care Provider [phone] Encounter Details Date Type Department Care Team (Late st Contact Info) Description 12/02/2020 Orders Only [facility] 1265 [facility] 1 [place] [address] Feng Arevalo DO 1265 [facility] 1 [place] [address] Hypercalcemia (Primary Dx) Social History [...] Primary documented in this encounter Care Teams Psychiatric Clinician Relationship Specialty Start Date End Date Jr Schmidt MD [address], [address] [address] PCP - General Family Medicine 04/15/24 documented as of this encounter
--- OUTSIDE RECORDS SUMMARY | 2025-02-04 17:16 | XMS_ITS | Encounter Summary ---
Author Organization [facility] , [facility] Address [address] [place] [phone] Phone Care Team Providers Care Job Molder Name Role Phone Jr Schmidt MD Primary Care Provider [phone] Reason for Visit * Reason Comments Med Refill Encounter Details Date Type Department Care Team (Late st Contact Info) Description 04/22/2022 Refill [place] [facility], [facility] 1265 [facility] 1 [place] [phone] Feng Arevalo DO 1265 [facility] 1 [place] [address] Social History Tobacco Use Types [...] on filedocumented in this encounter Care Teams Job Molder Relationship Specialty Start Date End Date Jr Schmidt MD [address], [id number] [place] [address] PCP - General Family Medicine 04/15/24 documented as of this encounter
--- OUTSIDE RECORDS SUMMARY | 2025-02-04 17:16 | XMS_ITS | Clinical Summary ---
Author Organization [facility] Address [address] [place] [address] Phone Care Team Providers Care Beauty School Instructor Name Role Phone Unavailable Primary Care Provider [...] cardiomyopathy 10/31/2015 Atherosclerotic heart diseas e of [place] coronary artery without angina pectoris 10/31/2015 Obstructive [...] Comments Blood Pressure 142/69 05/22/2017 12:01 AM QUANTITATIVE MANAGER Pulse 72 05/22/2017 12:01 AM QUANTITATIVE MANAGER Temperature 37 C (98.6 F) 11/01/2015 12:01 AM CDT Respiratory Rate - - Oxygen Saturation - - Inhaled Oxygen Concentration - - Weight 120 kg (265 lb) 05/22/2017 12:01 AM QUANTITATIVE MANAGER Height 185.4 cm (6' 1) 05/22/2017 12:01 AM QUANTITATIVE MANAGER Body Mass Index 34.96 05/22/2017 12:01 AM QUANTITATIVE MANAGER Plan of Treatment Not on file
--- OUTSIDE RECORDS SUMMARY | 2025-02-04 17:16 | XMS_ITS | Encounter Summary ---
Author Organization [facility] , [facility] Address [address] [place] [address] Phone Care Team Providers Care Farmer Diversified Crops Name Role Phone Jr Schmidt MD Primary Care Provider [phone] Reason for Visit * Reason Comments Med Refill Encounter Details Date Type Department Care Team (Late st Contact Info) Description 04/22/2023 Refill [place] [facility], [facility] 4 [facility] [address] [place] [phone] Feng Arevalo DO [address] [place] [address] Social History Tobacco Use Types [...] on filedocumented in this encounter Care Teams Farmer Diversified Crops Relationship Specialty Start Date End Date Jr Schmidt MD [id number] [place] [address] PCP - General Family Medicine 04/15/24 documented as of this encounter
--- OUTSIDE RECORDS SUMMARY | 2025-02-04 17:16 | XMS_ITS | Clinical Summary ---
Author Organization [facility] Address [facility] [place] [address] Care Team Providers Care Fusing Machine Tender Name Role Phone Unavailable Primary Care Provider [...]
--- OUTSIDE RECORDS SUMMARY | 2025-02-04 17:16 | XMS_ITS | Encounter Summary ---
Author Organization [facility] , [facility] Address [address] [place] [phone] Phone Care Team Providers Care Roll Slicing Machine Tender Name Role Phone Jr Schmidt MD Primary Care Provider [phone] Reason for Visit * Reason Comments Med Refill Encounter Details Date Type Department Care Team (Late st Contact Info) Description 02/26/2022 Refill [place] [facility], [facility] 1265 [facility] 1 [place] [phone] Feng Arevalo DO 1265 [facility] 1 [place] [address] Social History Tobacco Use Types [...] on filedocumented in this encounter Care Teams Roll Slicing Machine Tender Relationship Specialty Start Date End Date Jr Schmidt MD [address], [id number] [place] [address] PCP - General Family Medicine 04/15/24 documented as of this encounter
--- OUTSIDE RECORDS SUMMARY | 2025-02-04 17:16 | XMS_ITS | Clinical Summary ---
Author Organization [facility] Address [address] [place] [address] Care Team Providers Care Cable Braider Name Role Phone Jr Schmidt MD Primary Care Provider Feng Arevalo DO Unavailable [phone] Werner Estevez MD Unavailable [phone] Allergies No known active allergies Medications isosorbide [...] (PLAVIX) 75 mg tabletIndicatio ns:Atherosclero sis of [place] coronary artery of [place] heart without angina pectoris Take 1 tablet [...] spironolactone Assessment & Plan (07/08/2022 12:16 PM BELT OPERATOR): Awaiting labs EKG today shows old heart [...] panel Assessment & Plan (04/01/2022 2:18 PM BELT OPERATOR): A1c is still well below 7%, but [...] next week Atherosclerotic heart diseas e of [place] coronary artery without angina pectoris 10/04/2015 Assessment & Plan (10/07/2022 12:49 PM CDT): Unclear if he is still seeing a lead caster Working on resuming his medications, then we will get him back to specialist Resolved Problems Problem Noted Date Diagnosed Date Resolved Date Skin ulcer of right lower le g, limited to breakdown of skin 10/01/2023 01/08/2024 Encounters Date Type Department Care Team Description 11/11/2024 Results Follow-Up [facility] Primary Care at [address] [address] Jr Schmidt MD Hemoglobin A1c, Thyroid Function [place], T4, free 11/10/2024 4:02 PM CDT - 11/10/2024 11:59 PM CDT Hospital Encounter [address] [address] Hyperlipidemia associated with type 2 diabetes mellitus (HCC); Hypertensive kidney disease, stage III (HCC) Discharge Disposition: Discharge to home or self care 11/10/2024 4:00 PM CDT Lab [facility] Medical [facility] Outpatient Lab at [address] [address] 11/10/2024 3:15 PM CDT Office Visit [facility] Primary Care at [address] [address] Jr Schmidt MD 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 (HCC) (Primary Dx); Hypertensive kidney disease, stage III (HCC); Persistent atrial fibrillation (HCC); Hyperlipidemia associated with type 2 diabetes mellitus (HCC); Simple chronic bronchitis (HCC); Atherosclerosis of [place] coronary artery of [place] heart without angina pectoris; Hypertension associated with [...] CARDIAC STENT PLACEMENT September 2014, presented with DC CORONARY ANGIOPLASTY WITH STENT PLACEMENT 05/14/2023 - [...] on file Legal Sex Male 3:51 AM BELT OPERATOR Gender Identity Not on file Sexual Orientation [...] mellitus (HCC) EGFR Routine 07/15/2024 11:17 AM BELT OPERATOR Hypertensive kidney disease, stage III (HCC) Stage 3b chronic kidney disease (HCC) LIPID PANEL Routine 07/15/2024 11:17 AM BELT OPERATOR Hyperlipidemia associated with type 2 diabetes mellitus (HCC) ALBUMIN CREATININE RATIO, URINE Routine 07/15/2024 11:17 AM BELT OPERATOR Hypertensive kidney disease, stage III (HCC) 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 (HCC) PSA SCREEN Routine 07/15/2024 11:17 AM BELT OPERATOR Screening PSA (prostate specific antigen) HEPATITIS C ANTIBODY Routine 09/05/2022 9:25 AM CDT Encounter for hepatitis C screening test for low risk patient from Last 3 Months or Most Recently Relevant to Health Maintenance Results * (ABNORMAL) Thyroid Function [place] (11/10/2024 4:02 PM CDT) TSH 5.84(H) 0.30 - 4.20 mcIUnit/mL Blood 11/10/2024 4:02 PM CDT 11/10/2024 9:31 PM CDT Jr Schmidt MD LAB BLOOD ORDERABLES Final Result Performing Organization Address City/[facility] Co de Phone Number KENNETH LARKIN [address] [employer] [place], [place] [id number] * T4, free (11/10/2024 4:02 PM CDT) Free T4 1.06 0.90 - 1.70 ng/dL Blood 11/10/2024 4:02 PM CDT 11/10/2024 9:54 PM CDT Jr Schmidt MD LAB BLOOD ORDERABLES Final Result Performing Organization Address City/[facility] Co de Phone Number KENNETH LARKIN [address] [place] [address] * (ABNORMAL) Hemoglobin A1c (11/10/2024 4:02 PM CDT) Hgb A1C 6.9(H) 4.0 - 5.6 % Estimated Average Glucose 151 mg/dL KENNETH LARKIN Comment: The ADA recommends reporting an estimated Average Glucose (eAG) with all Hemoglobin A1c results using the equation derived from a study of 507 normal and diabetic adults. Minority populations were underrepresented and children were not included. (Diabetes Care 31:6913-1654, 2008). The eAG is not equivalent to a fasting glucose. Blood 11/10/2024 4:0 2 PM CDT 11/10/2024 9:31 PM CDT Jr Schmidt MD LAB BLOOD ORDERABLES Final Result Performing Organization Address [facility] Co de Phone Number KENNETH LARKIN [address] [place] [address] * (ABNORMAL) eGFR (07/15/2024 11:17 AM BELT OPERATOR) eGFR 52(L) >=60 mL/min/1. 73 m2 Comment: [...] reviewed 2021. Blood 07/15/2024 11:1 7 AM BELT OPERATOR 07/15/2024 10:11 PM BELT OPERATOR Jr Schmidt MD LAB BLOOD ORDERABLES Final Result Performing Organization Address City/[facility]/ZIP Co de Phone Number KENNETH LARKIN [address] [place] [address] * PSA screen (07/15/2024 11:17 AM BELT OPERATOR) PSA-Total 1.49 <=5.40 ng/mL Comment: Interpretive Data [...] revised 21. Blood 07/15/2024 11:1 7 AM BELT OPERATOR 07/15/2024 10:07 PM BELT OPERATOR Jr Schmidt MD LAB BLOOD ORDERABLES Final Result Performing Organization Address [facility] de Phone Number [facility] [address] [place] [address] * (ABNORMAL) Albumin Creatinine Ratio, Urine (07/15/2024 11:17 AM BELT OPERATOR) Albumin Ur 118.3 mg/L Comment: Interpretive Data No reference range established. Current interpretive data was last revised 2018. Creatinine Ur 92.0 mg/dL [facility] Comment: Interpretive Data No reference range established. Current interpretive data was last revised 2018. Albumin Creatinine Ratio, Ur 129(H) 1 - 29 mg/g [facility] Urine 07/15/2024 11:1 7 AM BELT OPERATOR 07/15/2024 10:07 PM BELT OPERATOR Jr Schmidt MD LAB URINE ORDERABLES Final Result Performing Organization Address [facility] Phone Number [facility] [address] [facility] [employer] [place] [address] * Lipid panel (07/15/2024 11:17 AM BELT OPERATOR) Cholesterol 185 30 - 199 mg/dL Comment: [...] revised on 2018. HDL 61 >=40 mg/dL KENNETH Comment: Interpretive Data Ages < [...] 3 KENNETH Blood 07/15/2024 11:1 7 AM BELT OPERATOR 07/15/2024 10:07 PM BELT OPERATOR Jr Schmidt MD LAB BLOOD ORDERABLES Final Result KENNETH [address] [place] [address] * Hepatitis C antibody (09/05/2022 9:25 AM CDT) Pathologist [facility] Hep C Ab Nonreactive Nonreactive KENNETH LARKIN [...] ORDERABLES Final Result Performing Organization Address City/State/ZIP [facility] Phone Number KENNETH [address] [facility] [place] [address] from Last 3 Months or Most Recently Relevant to Health Maintenance Insurance [facility] MEDIC[facility] Address: [address] [address] [facility] MEDICARE ADVANTAGE [facility] MED[facility] Address: [address] [address] [place] [address] Care Teams Cable Braider Relationship Specialty Start Date End Date Jr Schmidt MD [address] [facility] [address] [place] [address] PCP - General Family Medicine 03/02/22 Feng Arevalo DO [address] [facility] [address] [place] [address] Consulting Physician Nephrology 06/29/22 Werner Estevez MD [address] [place] [address] Consulting Physician Cardiology 10/01/23
--- NOTE | 2025-02-04 17:19 | ED.GENADULT ---
HPI - General Adult General Chief complaint: Upper Respiratory Infection Stated complaint: URI Time Seen by Provider: 02/04/25 16:35 History of Present Illness HPI narrative: This is a 60-year-old male presenting for URI symptoms. For last week he has had a cough. It is associated with subjective fevers and body aches. He has not had any nausea vomiting or diarrhea. Patient has also had right lower back pain radiating down the back of his leg. He has not taken anything for pain control. No weakness, urinary retention or bowel incontinence. No trauma. No history of cancer. Related Data Home Medications ?Medication ?Instructions ?Recorded ?Confirmed ?Last Taken ?Type amlodipine 10 mg tablet 10 mg PO DAILY 06/24/23 02/04/25 02/03/25 History atorvastatin 80 mg tablet 80 mg PO QPM 06/24/23 02/04/25 02/03/25 History clopidogrel 75 mg tablet 75 mg PO DAILY 06/24/23 02/04/25 02/03/25 History empagliflozin 10 mg tablet 10 mg PO DAILY 06/24/23 02/04/25 02/03/25 History (Jardiance) ezetimibe 10 mg tablet 10 mg PO DAILY 06/24/23 02/04/25 02/03/25 History insulin glargine 100 unit/mL (3 3 unit subcut QPM 06/24/23 02/04/25 02/03/25 History mL) subcutaneous pen (Lantus Solostar U-100 Insulin) metoprolol succinate 100 mg 100 mg PO Q12H 06/24/23 02/04/25 02/03/25 History tablet,extended release 24 hr sitagliptin phosphate 100 mg 100 mg PO DAILY 06/24/23 02/04/25 02/03/25 History tablet (Januvia) sodium bicarbonate 650 mg tablet 650 mg PO QID 06/24/23 02/04/25 02/03/25 History spironolactone 25 mg tablet 25 mg PO Q12H 06/24/23 02/04/25 02/03/25 History torsemide 20 mg tablet 20 mg PO DAILY 06/24/23 02/04/25 02/03/25 History Allergies Allergy/AdvReac Type Severity Reaction Status Date / Time No Known Allergies Allergy Verified 02/04/25 16:19 Exam Narrative: APPEARANCE: No apparent distress. Head: atraumatic. EYES: EOMI, NOSE: Atraumatic NECK: Trachea midline RESPIRATORY: No increased rate of breathing clear to auscultation CARDIOVASCULAR: RRR, no peripheral edema ABDOMINAL: Non-distended soft nontender MUSCULOSKELETAl: No obvious deformities NEURO: Alert. Cranial nerves 2-12 grossly intact. Sensation light touch, motor function cerebellar function intact for 4 extremities. Gait exam was normal. SKIN:: Warm, dry. Normal color PSYCHIATRIC: Normal affect Course Vital Signs Vital signs: Vital Signs Temperature 97.4 F L 02/04/25 16:09 Pulse Rate 87 02/04/25 16:09 Respiratory Rate 16 02/04/25 16:09 Blood Pressure 157/108 H 02/04/25 16:09 Pulse Oximetry 97 02/04/25 16:09 Temperature 97.4 F L 02/04/25 16:09 Pulse Rate 87 02/04/25 16:09 Respiratory Rate 16 02/04/25 16:09 Blood Pressure 157/108 H 02/04/25 16:09 Pulse Oximetry 97 02/04/25 16:13 Oxygen Delivery Room Air 02/04/25 16:13 Medical Decision Making MDM Narrative Medical decision making narrative: -Course: 60-year-old male presenting with 1 week of cough. Chest x-ray shows mild bibasilar infiltrates. White count is normal. Vital signs are stable. Patient received fluids and Tylenol and states he is feeling better. Patient will be given a dose of Augmentin and doxycycline for community-acquired pneumonia. Given strict return precautions. Patient also has sciatica. No red flags on history physical. Symptoms improved with Tylenol. This can be managed by his primary care physician. -DDX includes but is not limited to: Pneumonia, viral syndrome, bronchitis, sciatica, muscle strain Vital Signs Vital Signs: Vital Signs Temperature 97.4 F L 02/04/25 16:09 Pulse Rate 87 02/04/25 16:09 Respiratory Rate 16 02/04/25 16:09 Blood Pressure 157/108 H 02/04/25 16:09 Pulse Oximetry 97 02/04/25 16:09 Temperature 97.4 F L 02/04/25 16:09 Pulse Rate 87 02/04/25 16:09 Respiratory Rate 16 02/04/25 16:09 Blood Pressure 157/108 H 02/04/25 16:09 Pulse Oximetry 97 02/04/25 16:13 Oxygen Delivery Room Air 02/04/25 16:13 Lab Data Labs: Lab Results 02/04/25 Range/Units 16:13 Influenza A (RT-PCR) Negative (Negative) Influenza B (RT-PCR) Negative (Negative) RSV (RT-PCR) Negative (Negative) SARS-CoV-2 RNA (RT-PCR) Negative (Negative) Discharge Plan Discharge Clinical Impression: Pneumonia Patient Disposition: Home Condition: Stable Instructions: Antibiotic Form, Community Acquired Pneumonia (DC) Additional Instructions: You were seen in the emergency department for cough. You have pneumonia. Take Augmentin and doxycycline. If you do feel the your condition is getting worse I want you to return to the emergency department immediately. Worsening symptoms would include fevers, chest pain, shortness of breath, and weakness. Patient Language: Canadian Prescriptions: New acetaminophen 500 mg tablet 1,000 mg PO TID PRN (Reason: dashawn) 7 Days Qty: 42 0RF amoxicillin-pot clavulanate 875-125 mg tablet 1 tablet PO Q12H Qty: 20 0RF doxycycline hyclate 100 mg capsule 100 mg PO BID Qty: 20 0RF No Action tramadol 50 mg tablet 50 mg PO Q6H PRN (Reason: pain) 3 Days Qty: 12 0RF atorvastatin 80 mg tablet 80 mg PO QPM torsemide 20 mg tablet 20 mg PO DAILY metoprolol succinate 100 mg tablet extended release 24 hr 100 mg PO Q12H clopidogrel 75 mg tablet 75 mg PO DAILY spironolactone 25 mg tablet 25 mg PO Q12H sodium bicarbonate 650 mg tablet 650 mg PO QID amlodipine 10 mg tablet 10 mg PO DAILY ezetimibe 10 mg tablet 10 mg PO DAILY Januvia 100 mg tablet 100 mg PO DAILY insulin glargine [Lantus Solostar U-100 Insulin] 100 unit/mL (3 mL) insulin pen 3 unit SUBCUT QPM Jardiance 10 mg tablet 10 mg PO DAILY Follow-up/Referrals: PHYSICIAN,GLASS POLISHER [Primary Care Provider, Internal Medicine] Binh Plasencia MD [Physician, Family Practice] - 1 Week Referral Note: Establish pcp. PNA f/u
[2025-02-04 17:46] LABS: Hematocrit 51.1 % (42.0-52.0); Hemoglobin 16.9 g/dL (14.0-18.0); Immature Granulocyte Percent A 0.3 % (0-0.5); Lymphocytes Absolute Auto 1.50 K/mm3 (0.9-3.2); Mean Corpuscular HGB Conc 33.1 g/dl (32-36); Mean Corpuscular Hemoglobin 30.2 pg (26-34); Mean Corpuscular Volume 91.3 fl (80-100); Nucleated Red Blood Cells Absolute Auto 0.000 K/mm3 (0.0-0.012); Nucleated Red Blood Cells Perc 0.0 % (0.0-0.2); Platelet Count Result 359 k/mm3 (150-375); Red Blood Count 5.60 M/mm3 (4.6-6.20); White Blood Count 7.2 K/mm3 (4.5-10.0)
--- NOTE | 2025-02-04 17:59 | PC.NURSE ---
EKG was performed late d/t xray being in the room for the pt.
[2025-02-04] MEDS: LACTATED RINGERS 1,000 ML 999 ML IV CONT (18:06)
[2025-02-04] MEDS: DOXYCYCLINE HYCLATE 100 MG TABLET PO (18:12)
[2025-02-04] MEDS: ACETAMINOPHEN 500 MG TABLET 1000 MG PO (18:12)
--- NOTE | 2025-02-04 18:15 | PC.NURSE ---
Acetaminophen was given late b/c XRAY was in the room at time of order.
[2025-02-04 18:29] LABS: Alanine Aminotransferase 63 U/L (6-50); Albumin Level 4.4 g/dL (3.5-5.1); Alkaline Phosphatase 68 U/L (38-126); Anion Gap 10 mmol/L (4-12); Aspartate Amino Transferase 71 U/L (17-59); Bilirubin,Total 0.8 mg/dL (0.2-1.3); Blood Urea Nitrogen 19 mg/dL (9-20); Calcium 10.1 mg/dL (8.4-10.2); Carbon Dioxide 21 mmol/L (22-30); Chloride 108 mmol/L (98-107); Estimated CRCL calculation 55 ml/min; Estimated Glomerular Filt Rate 45; Glucose 127 mg/dL (65-110); Potassium 4.3 mmol/L (3.4-5.0); Sodium 139 mmol/L (137-145); Total Protein 9.3 g/dL (6.3-8.2)
== END 2025-02-04 20:02 | disposition home or self-care (01) ==
PROVIDERS: Family Medicine; Emergency Provider Emergency Medicine
DX: J18.9 Pneumonia, unspecified organism (principal); M54.41 Lumbago with sciatica, right side; Z20.822 Contact with and (suspected) exposure to COVID-19; I49.1 Atrial premature depolarization; R94.31 Abnormal electrocardiogram [ECG] [EKG]
CPT/HCPCS: 36415; 71045; 80053; 85025; 87637; 93005; 96360; 99283; A9270; J7120

== ENCOUNTER 2025-05-11 18:09 | Emergency (ER) | payer MEDICARE, MEDICAID, SELFPAY ==
--- NOTE | ~2025-05-11 | CT_ITS ---
CT brain wo con HISTORY:Head injury COMPARISON: None. TECHNIQUE: Axial images were obtained of the head without intravenous contrast. FINDINGS: No acute intracranial hemorrhage, mass effect or midline shift. No extra-axial fluid collections. 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 Visualized paranasal sinuses and mastoid air cells are clear. IMPRESSION: No acute intracranial hemorrhage or extra axial fluid collections. All CT scans at this facility are performed using low dose modulation techniques as appropriate to perform exam including the following: automated exposure control; use of iterative reconstruction technique; adjustment of the mA and/or kV according to patient size (this includes techniques or standardized protocols for targeted exams where dose is matched to indication/reason for exam). Reviewed, dictated and finalized at [facility] IMPRESSION: No acute intracranial hemorrhage or extra axial fluid collections. All CT scans at this facility are performed using low dose modulation techniqu es as appropriate to perform exam including the following: automated exposure c ontrol; use of iterative reconstruction technique; adjustment of the mA and/or kV according to patient size (this includes techniques or standardized protocol s for targeted exams where dose is matched to indication/reason for exam).
[2025-05-11 18:08] VITALS: BP 139/91; PULSE 86; RESP 16; TEMP 36.4; O2SAT 96
[2025-05-11 19:08] LABS: Hematocrit 52.0 % (42.0-52.0); Hemoglobin 16.3 g/dL (14.0-18.0); Immature Granulocyte Percent A 0.2 % (0-0.5); Lymphocytes Absolute Auto 1.61 K/mm3 (0.9-3.2); Mean Corpuscular HGB Conc 31.3 g/dl (32-36); Mean Corpuscular Hemoglobin 30.9 pg (26-34); Mean Corpuscular Volume 98.7 fl (80-100); Nucleated Red Blood Cells Absolute Auto 0.000 K/mm3 (0.0-0.012); Nucleated Red Blood Cells Perc 0.0 % (0.0-0.2); Platelet Count Result 250 k/mm3 (150-375); Red Blood Count 5.27 M/mm3 (4.6-6.20); White Blood Count 5.2 K/mm3 (4.5-10.0)
[2025-05-11 19:18] LABS: Alanine Aminotransferase 39 U/L (6-50); Albumin Level 4.3 g/dL (3.5-5.1); Alkaline Phosphatase 92 U/L (38-126); Anion Gap 11 mmol/L (4-12); Aspartate Amino Transferase 48 U/L (17-59); Bilirubin,Total 0.5 mg/dL (0.2-1.3); Blood Urea Nitrogen 16 mg/dL (9-20); Calcium 9.3 mg/dL (8.4-10.2); Carbon Dioxide 21 mmol/L (22-30); Chloride 107 mmol/L (98-107); Estimated CRCL calculation 50 ml/min; Estimated Glomerular Filt Rate 38; Glucose 173 mg/dL (65-110); Potassium 4.2 mmol/L (3.4-5.0); Sodium 139 mmol/L (137-145); Total Protein 8.2 g/dL (6.3-8.2)
[2025-05-11 19:22] LABS: INR 1.1; Prothrombin Time 14.3 Seconds (11.1-14.7)
--- NOTE | 2025-05-11 20:15 | ED.GENADULT ---
HPI - General Adult General Chief complaint: Fall Stated complaint: glf, unknown LOC, +blood thinners, +ETOH History of Present Illness HPI narrative: Patient is a 60-year-old male who presents ER after falling and striking his head on a glass coffee table. Patient has been drinking Tequila and needed to get up to go the bathroom when he tripped and fell. Unknown loss of consciousness. Patient does take Plavix. He has multiple lacerations to his forehead and scalp. He is awake alert orient x3. No other complaints of pain. Last tetanus shot documented in chart as 10/2023. Related Data Home Medications ?Medication ?Instructions ?Recorded ?Confirmed ?Last Taken ?Type amlodipine 10 mg tablet 10 mg PO DAILY 06/24/23 02/04/25 02/03/25 History atorvastatin 80 mg tablet 80 mg PO QPM 06/24/23 02/04/25 02/03/25 History clopidogrel 75 mg tablet 75 mg PO DAILY 06/24/23 02/04/25 02/03/25 History empagliflozin 10 mg tablet 10 mg PO DAILY 06/24/23 02/04/25 02/03/25 History (Jardiance) ezetimibe 10 mg tablet 10 mg PO DAILY 06/24/23 02/04/25 02/03/25 History insulin glargine 100 unit/mL (3 3 unit subcut QPM 06/24/23 02/04/25 02/03/25 History mL) subcutaneous pen (Lantus Solostar U-100 Insulin) metoprolol succinate 100 mg 100 mg PO Q12H 06/24/23 02/04/25 02/03/25 History tablet,extended release 24 hr sitagliptin phosphate 100 mg 100 mg PO DAILY 06/24/23 02/04/25 02/03/25 History tablet (Januvia) sodium bicarbonate 650 mg tablet 650 mg PO QID 06/24/23 02/04/25 02/03/25 History spironolactone 25 mg tablet 25 mg PO Q12H 06/24/23 02/04/25 02/03/25 History torsemide 20 mg tablet 20 mg PO DAILY 06/24/23 02/04/25 02/03/25 History Allergies Allergy/AdvReac Type Severity Reaction Status Date / Time No Known Allergies Allergy Verified 05/11/25 18:33 Review of Systems Review of Systems: All systems reviewed & are unremarkable except as noted in HPI and below Constitutional: Constitutional: Reports no additional constitutional complaints ENT: Reports system reviewed and no additional complaints, except as documented Cardiovascular: Cardiovascular: Reports no additional cardiovascular complaints Respiratory: Respiratory: Reports no additional respiratory complaints Gastrointestinal: Gastrointestinal: Reports no additional gastrointestinal complaints Neurologic: Reports system reviewed and no additional complaints, except as documented PMFSH Past Medical History Medical History (Updated 05/11/25 @ 21:41 by Miguel Glasgow MD) Coronary artery disease Diabetes Hypertension Surgical History Surgical History (Updated 05/11/25 @ 20:16 by Miguel Glasgow MD) History of percutaneous coronary intervention Exam Narrative: GENERAL: Well-appearing, well-nourished, and in no acute distress. HEAD: Normocephalic, multiple lacerations of the scalp and forehead. Largest forehead laceration is 3.5 cm and linear. Left parietal region laceration 2 cm superior to the ear. Her line laceration 1.5 cm. 2 cm laceration right parietal scalp superiorly. Multiple other abrasions of forehead and scalp not amenable to repair. EYES: PERRL and EOMI. ENT: Mucous membranes moist. NECK: Supple. No midline tenderness the cervical spine with normal range of motion. CHEST: Clear to auscultation. No respiratory distress. HEART: Regular rate and rhythm. Normal peripheral pulses. ABDOMEN: Soft, nontender, nondistended. EXTREMITIES: Normal range of motion. No edema. SKIN: Warm, dry, no rash. NEURO: Alert and oriented x3. PSYCH: Normal mood and affect. Course Course Emergency Course: Lacerations repaired. Imaging negative. Patient is intoxicated will require ride home. Vital Signs Vital signs: Vital Signs Temperature 97.6 F 05/11/25 18:08 Pulse Rate 86 05/11/25 18:08 Respiratory Rate 16 05/11/25 18:08 Blood Pressure 139/91 H 05/11/25 18:08 Pulse Oximetry 96 05/11/25 18:08 Oxygen Delivery Room Air 05/11/25 18:08 Temperature 97.6 F 05/11/25 18:08 Pulse Rate 86 05/11/25 18:08 Respiratory Rate 16 05/11/25 18:08 Blood Pressure 139/91 H 05/11/25 18:08 Pulse Oximetry 96 05/11/25 18:08 Oxygen Delivery Room Air 05/11/25 18:08 Procedures Laceration Laceration 1: Date: 05/11/25 Time: 21:35 Site: face Size (cm): 3.5 Description: linear Depth: simple, single layer Local Anesthetic: lidocaine 1% and with epi Amount of anesthesia used (mL): 3 Pre-repair: wound explored, irrigated extensively and other (No FB identified) ====== Skin Level ====== Skin layer closed with: nylon Size (cm): 5-0 Number of sutures: 7 Technique: simple, interrupted ====== Subcutaneous Layer ====== ====== Muscle Layer ====== ====== Tendon Layer ====== Laceration 2: Date: 05/11/25 Site: scalp (left parietal) Size (cm): 2 Description: linear Depth: simple, single layer Pre-repair: wound explored and irrigated extensively ====== Skin Level ====== Skin layer closed with: ravi Number of sutures: 4 ====== Subcutaneous Layer ====== ====== Muscle Layer ====== ====== Tendon Layer ====== Laceration 3: Site: scalp (hairline left side) Side (If applicable): left Size (cm): 1.5 Description: linear Depth: simple, single layer Pre-repair: wound explored, irrigated extensively and minor debridement (Glass removed) ====== Skin Level ====== Skin layer closed with: ravi Number of sutures: 3 ====== Subcutaneous Layer ====== ====== Muscle Layer ====== ====== Tendon Layer ====== Laceration 4: Date: 05/11/25 Site: scalp (right upper parietal) Size (cm): 2 Description: linear Depth: simple, single layer Pre-repair: wound explored and irrigated extensively ====== Skin Level ====== Skin layer closed with: ravi Number of sutures: 4 ====== Subcutaneous Layer ====== ====== Muscle Layer ====== ====== Tendon Layer ====== MDM Differential Diagnosis Differential Diagnosis: Intracranial hemorrhage, lacerations, imbedded foreign bodies, alcohol intoxication, extremity fracture, eye foreign body Lab Data 05/11/25 19:02 05/11/25 19:02 Labs: Lab Results 05/11/25 Range/Units 19:02 WBC 5.2 (4.5-10.0) K/mm3 RBC 5.27 (4.6-6.20) M/mm3 Hgb 16.3 (14.0-18.0) g/dL Hct 52.0 (42.0-52.0) % MCV 98.7 (80-100) fl MCH 30.9 (26-34) pg MCHC 31.3 L (32-36) g/dl RDW 14.3 (11.5-14.5) % Plt Count 250 (150-375) k/mm3 MPV 9.7 (7.4-10.4) fl Immature Gran % (Auto) 0.2 (0-0.5) % Neut % (Auto) 52.7 (45.5-73.1) % Lymph % (Auto) 31.0 (18.3-44.2) % [place] % (Auto) 11.6 H (2.6-8.5) % Eos % (Auto) 3.5 (0-4.4) % Baso % (Auto) 1.0 (0.2-1.2) % Lymph # (Auto) 1.61 (0.9-3.2) K/mm3 [place] # (Auto) 0.6 (0.1-0.6) K/mm3 Eos # (Auto) 0.2 (0-0.3) K/mm3 Baso # (Auto) 0.1 (0.0-0.1) K/mm3 Abs Immat Gran (auto) 0.01 (0.00-0.031) K/mm3 Absolute Neuts (auto) 2.7 (1.3-6.7) K/mm3 Absolute Nucleated RBC 0.000 (0.0-0.012) K/mm3 Nucleated RBC % 0.0 (0.0-0.2) % PT 14.3 (11.1-14.7) Seconds INR 1.1 APTT 20.0 L (22.3-36.8) Seconds Sodium 139 (137-145) mmol/L Potassium 4.2 (3.4-5.0) mmol/L Chloride 107 (98-107) mmol/L Carbon Dioxide 21 L (22-30) mmol/L Anion Gap 11 (4-12) mmol/L BUN 16 (9-20) mg/dL Creatinine 1.83 H (0.7-1.3) mg/dL Estim Creat Clear Calc 50 ml/min Estimated GFR 38 L (59 - ) Glucose 173 H (65-110) mg/dL Calcium 9.3 (8.4-10.2) mg/dL Total Bilirubin 0.5 (0.2-1.3) mg/dL AST 48 (17-59) U/L ALT 39 (6-50) U/L Alkaline Phosphatase 92 (38-126) U/L Total Protein 8.2 (6.3-8.2) g/dL Albumin 4.3 (3.5-5.1) g/dL Imaging Data Radiologist's impression: ITS Impressions Head CT 05/11/25 18:45 IMPRESSION: No acute intracranial hemorrhage or extra axial fluid collections. All CT scans at this facility are performed using low dose modulation techniques as appropriate to perform exam including the following: automated exposure control; use of iterative reconstruction technique; adjustment of the mA and/or kV according to patient size (this includes techniques or standardized protocols for targeted exams where dose is matched to indication/reason for exam). Discharge Plan Discharge Clinical Impression: Laceration of scalp, Forehead laceration, Alcohol intoxication Patient Disposition: Home Condition: Stable Instructions: Care For Your Stitches (ED), Laceration (ED), Staple Care (ED) Additional Instructions: You will need to return to the ER 1 week to have the ravi removed from her scalp and the stitches removed from her face. You may also follow-up with your primary care physician. Return the ER if your wounds become red and hot, they are draining pus, you develop fever over 100.4? F, or you have additional concerns. Patient Language: St Helen[place] Prescriptions: No Action tramadol 50 mg tablet 50 mg PO Q6H PRN (Reason: pain) 3 Days Qty: 12 0RF acetaminophen 500 mg tablet 1,000 mg PO TID PRN (Reason: dashawn) 7 Days Qty: 42 0RF amoxicillin-pot clavulanate 875-125 mg tablet 1 tablet PO Q12H Qty: 20 0RF doxycycline hyclate 100 mg capsule 100 mg PO BID Qty: 20 0RF atorvastatin 80 mg tablet 80 mg PO QPM torsemide 20 mg tablet 20 mg PO DAILY metoprolol succinate 100 mg tablet extended release 24 hr 100 mg PO Q12H clopidogrel 75 mg tablet 75 mg PO DAILY spironolactone 25 mg tablet 25 mg PO Q12H sodium bicarbonate 650 mg tablet 650 mg PO QID amlodipine 10 mg tablet 10 mg PO DAILY ezetimibe 10 mg tablet 10 mg PO DAILY Januvia 100 mg tablet 100 mg PO DAILY insulin glargine [Lantus Solostar U-100 Insulin] 100 unit/mL (3 mL) insulin pen 3 unit SUBCUT QPM Jardiance 10 mg tablet 10 mg PO DAILY Follow-up/Referrals: Bryan Fine MD [Physician, Family Practice] - 1 Week
[2025-05-11 20:18] LABS: Partial Thromboplastin Time 20.0 Seconds (22.3-36.8)
--- NOTE | 2025-05-11 22:09 | PC.NURSE ---
This RN called pt girlfriend and she is unable to pick him up. This RN called pts sister with no answer
[2025-05-11 22:45] VITALS: BP 134/87; PULSE 82; RESP 15; TEMP 36.6; O2SAT 99
[2025-05-11 22:46] VITALS: BP 134/87; PULSE 82; RESP 15; TEMP 36.6; O2SAT 99
== END 2025-05-11 22:48 | disposition home or self-care (01) ==
PROVIDERS: Emergency Provider Emergency Medicine
DX: S01.01XA Laceration without foreign body of scalp, initial encounter (principal); S01.81XA Laceration without foreign body of other part of head, initial encounter; W01.190A Fall on same level from slipping, tripping and stumbling with subsequent striking against furniture, initial encounter; F10.120 Alcohol abuse with intoxication, uncomplicated; Z79.02 Long term (current) use of antithrombotics/antiplatelets; Z79.899 Other long term (current) drug therapy
CPT/HCPCS: 12002; 12013; 36415; 70450; 80053; 85025; 85610; 85730; 99284